=== PATIENT | female | born 1965 | race Caucasian/White ===

== ENCOUNTER 2022-02-18 10:32 | Emergency (ER) | payer MEDICAID, SELFPAY ==
--- NOTE | 2022-02-18 | ECG_ITS ---
Test Reason : cp/dyspnea Blood Pressure : / mmHG Vent. Rate : 103 BPM Atrial Rate : 103 BPM P-R Int : 156 ms QRS Dur : 076 ms QT Int : 328 ms P-R-T Axes : 020 -07 034 degrees QTc Int : 429 ms Sinus tachycardia Otherwise normal ECG When compared with ECG of 31-DEC-2014 19:14, Heart rate has increased Referred By: Generic ED Physician Electronically Signed By:HOOD WRIGHT
--- NOTE | ~2022-02-18 | XR_ITS ---
EXAMINATION: XR CHEST CLINICAL INFORMATION: Shortness of breath COMPARISON: Chest radiograph from 12/31/2014 TECHNIQUE: 2 views of the chest were obtained. FINDINGS: No focal consolidation. No pneumothorax. Trachea is midline. Cardiomediastinal silhouette is not enlarged. No large pleural effusion. Osseous structures are intact. Soft tissues are unremarkable. XR/XR chest 2V IMPRESSION: No acute cardiopulmonary process.
[2022-02-18 10:35] VITALS: BP 165/77; PULSE 128; RESP 28; TEMP 36.1; O2SAT 100; BMI 28.8
== END 2022-02-18 15:49 | disposition left against medical advice (07) ==
PROVIDERS: Emergency Provider Emergency Medicine
DX: R06.02 Shortness of breath (principal); R07.89 Other chest pain
CPT/HCPCS: 71046; 93005; 99283

== ENCOUNTER 2024-05-09 18:26 | Emergency (ER) | payer OTHER, SELFPAY ==
--- NOTE | ~2024-05-09 | XR_ITS ---
EXAMINATION: XR TIBIA AND FIBULA, RIGHT CLINICAL INFORMATION: Pain status-post injury. COMPARISON: Right knee radiographs dated 11/24/2018. TECHNIQUE: AP and lateral views of the right tibia and fibula were obtained. FINDINGS: The bones and soft tissues are normal. No fracture. No osseous lesions. There are multiple lower thigh and lower leg varicosities, and there are anterior gonzalez soft tissue calcifications suggesting venous insufficiency. XR/XR tibia fibula RT 2V IMPRESSION: Normal right tibia and fibula. Electronically signed by: Huan Conrad MD 05/09/2024 09:16 PM EST
--- NOTE | 2024-05-09 19:04 | ED.GENADULT ---
HPI - General Adult General Chief complaint: Wound/Laceration Stated complaint: RT leg lac Time Seen by Provider: 05/10/24 04:14 Source: patient and old records reviewed Mode of arrival: ambulatory Limitations: no limitations History of Present Illness ED Provider: CRISTINA HPI narrative: 58 yo female with PMH of celllulitis was recently on thinners but off x 1 month for L DVT post infection here with c/o striking R gonzalez into a piece of furniture while doing laundry no other injuries reported. Tdap UNSURE MD complaint: laceration Onset (ago): hour(s) (several) Location: right and lower extremity Radiation: non-radiation Severity: moderate Quality: aching Pain Consistency: intermittent Relieving factors: none Exacerbating factors: movement Associated symptoms: denies other symptoms Treatments prior to arrival: none Related Data Allergies Allergy/AdvReac Type Severity Reaction Status Date / Time roberto [ROBERTO] Allergy Severe SWOLLEN Verified 05/09/24 19:07 LIPS AND TONGUE Penicillins [PENICILLINS] Allergy Intermediate RASH Verified 05/09/24 19:07 Review of Systems Review of Systems: Constitutional : No Fever, No Chills, Cardiovascular : No Chest Pain, No SOB Respiratory : No Dyspnea Gastrointestinal : No abdominal pain Musculoskeletal : No Joint Swelling Skin : No rash, positive skin laceration Neuro : No Weakness, No Numbness Psych : No SI/HI all other systems reviewed and are negative [facility] Past Medical History Attestation statement: The following information was validated with the patient. Source: old records reviewed Medical History (Updated 05/10/24 @ 04:34 by Cris Douglas DO) DVT (deep venous thrombosis) Cellulitis Social History Social History (Updated 05/10/24 @ 04:29 by Cris Douglas DO) Patient Tobacco Use Status: Never used Tobacco Physical Exam ED Vital Signs: Vital Signs - 24 hr 05/09/24 19:06 05/10/24 04:06 05/10/24 04:07 Temperature 97.9 F Pulse Rate 106 H 87 87 Respiratory Rate 18 8 L 18 Blood Pressure 118/76 125/83 125/83 Pulse Oximetry 98 100 100 Oxygen Delivery Method Room Air Room Air BMI result Body Mass Index 28.6 Appearance: Alert. Oriented X3. No acute distress. Eyes: Pupils equal, round and reactive to light. ENT: Pharynx normal. Neck: Normal inspection. Neck supple. CVS:. Pulses normal. Respiratory: No respiratory distress. Abdomen: atraumatic Skin: Skin warm and dry. Normal skin color. Normal skin turgor. Extremities: No lower extremity edema. R anterior gonzalez 3cm laceration sub q exposed distal NV intact, no muscle involvement bleeding controlled Neuro: Oriented X 3. No motor deficit. No sensory deficit. Course Course Course Narrative: RME performed by Lisa Paige PA-C. Patient is a 58 year old assigned female at presenting to the emergency department with a right lower leg injury. Patient states that she walked into a drawer and cut open her leg. Detailed physical exam and review of systems are deferred to the lay brother. Imaging ordered. Patient placed back in the waiting room pending room availability and results. Procedures Laceration Laceration 1: Site: lower extremity Side (If applicable): right Size (cm): 3 Description: linear Depth: simple, single layer Local Anesthetic: lidocaine 1% Amount of anesthesia used (mL): 5 Pre-repair: wound explored, irrigated extensively and deep structures intact Skin layer closed with: other (boubacar 4) Medical Decision Making Medical Decision Making MDM Narrative: 58 yo female with PMH of cellulitis no longer on thinners now here with direct hit to R anterior gonzalez will close with boubacar as patient has been waiting for several hours and wants to go home - she states she doesn't care about scar, Tdap ordered Differential Diagnosis Differential Diagnoses: The differential diagnosis associated with the presentation includes laceration Independent Interpretation I performed an independent interpretation of an: Plain X-Ray (normal ) Radiology Impression Discussion of test interpretation with radiology: I have reviewed the radiologist's reading. Discharge Plan Discharge Clinical Impression: Laceration Patient Disposition: Home, Self-Care Instructions: Laceration (ED), Staple Care (ED) Additional Instructions: monitor for increased redness, swelling, fevers, yellow drainage okay to shower but no other exposure to water - wait 48 hours to get leg wet boubacar out in 10 days please avoid strenuous activity on it for the next 3 to 4 days - let it heal Print Language: Amharic
[2024-05-09 19:06] VITALS: BP 118/76; PULSE 106; RESP 18; TEMP 36.6; O2SAT 98; BMI 28.6
[2024-05-10 04:06] VITALS: BP 125/83; PULSE 87; RESP 8; O2SAT 100
[2024-05-10 04:07] VITALS: BP 125/83; PULSE 87; RESP 18; O2SAT 100
[2024-05-10] MEDS: Diphth,Pertus(ACell),Tet Adult 0.5 ML SYRINGE IM (04:49)
[2024-05-10] MEDS: Lidocaine HCl 1 % MPF 5 ML VIAL SUBCUT (04:50)
[2024-05-10 04:54] VITALS: BP 124/79; PULSE 80; RESP 16; TEMP 36.7; O2SAT 99
== END 2024-05-10 05:01 | disposition home or self-care (01) ==
PROVIDERS: Emergency Provider Emergency Medicine
DX: S81.811A Laceration without foreign body, right lower leg, initial encounter (principal); W22.03XA Walked into furniture, initial encounter; Y93.89 Activity, other specified; Y92.89 Other specified places as the place of occurrence of the external cause; Y99.9 Unspecified external cause status; Z23 Encounter for immunization
CPT/HCPCS: 12002; 73590; 90471; 90715; 99284; J2003